=== PATIENT | female | born 1975 | race Caucasian/White ===

== ENCOUNTER 2024-02-07 20:32 | Emergency (ER) | payer OTHER ==
[2024-02-07] MEDS ORDERED: FAMOTIDINE 20 MG/50 ML IVPB 20 MG/50 ML MG IVPB ONE (22:20)
[2024-02-07] MEDS ORDERED: ONDANSETRON 4 MG/2 ML VIAL ONE (22:20)
[2024-02-07 22:24] LABS: BASO % 0.3 % (0-2.0); EOS % 1.1 % (0-4.5); HEMATOCRIT 43.9 % (32.4-45.2); HEMOGLOBIN 15.1 GM/dL (10.7-15.3); LYMPH % 25.5 % (8-40); MCHC 34.4 g/dl (32.0-36.0); MEAN CELL VOLUME 90.3 fl (80-96); MONO % 5.2 % (3.8-10.2); NEUT % 67.9 % (42.8-82.8); PLATELET COUNT 243 10^3/uL (134-434); RBC 4.86 M/mm3 (3.60-5.2); RDW 13.1 % (11.6-15.6); WHITE BLOOD COUNT 8.2 K/mm3 (4.0-10.0)
[2024-02-07] MEDS: FAMOTIDINE 20 MG/50 ML IVPB 20 MG/50 ML MG IVPB ONE (22:28)
[2024-02-07] MEDS: ONDANSETRON 4 MG/2 ML VIAL IVPUSH ONE (22:28)
[2024-02-07] MEDS: SODIUM CHLORIDE 1,000 ML IV STA (22:28)
[2024-02-07 22:31] LABS: INR 0.9 (0.83-1.09); PROTHROMBIN TIME (PATIENT) 10.4 SEC (9.7-13.0)
[2024-02-07 22:34] LABS: ACTIVATED PTT 31.6 SECONDS (25.2-36.5)
[2024-02-07 22:55] LABS: CHLORIDE 98 mmol/L (98-107); POTASSIUM 4.1 mmol/L (3.5-5.1); SODIUM 134 mmol/L (136-145)
[2024-02-07 22:57] LABS: CALCIUM 9.2 mg/dL (8.5-10.1)
[2024-02-07 22:58] LABS: ALBUMIN 3.8 g/dl (3.4-5.0); ANION GAP 10 mmol/L (4-13); BLOOD UREA NITROGEN 10.4 mg/dL (7-18); CO2 26 mmol/L (21-32); MAGNESIUM 2.2 mg/dL (1.8-2.4)
[2024-02-07 23:01] LABS: SGOT/AST 58 U/L (15-37); SGPT/ALT 116 U/L (13-61)
[2024-02-07 23:02] LABS: BILIRUBIN,TOTAL 0.5 mg/dL (0.2-1); TOT PROT 8.3 g/dl (6.4-8.2)
[2024-02-07 23:03] LABS: ALK PHOS 156 U/L (45-117)
[2024-02-07 23:15] LABS: GLUCOSE,RANDOM 451 mg/dL (74-106)
[2024-02-07 23:37] LABS: VENOUS BASE EXCESS -1.4 mmol/L (-2-2); VENOUS O2 SATURATION 95.5 % (70-80); VENOUS PCO2 36.9 mmHg (38-52); VENOUS PH 7.409 (7.310-7.410)
[2024-02-08 02:19] VITALS: BP 122/66; PULSE 79; RESP 13; TEMP 98.7
[2024-02-08] MEDS: SODIUM CHLORIDE 1,000 ML IV STA (02:52)
== END 2024-02-08 03:21 | disposition home or self-care (01) ==
LOC: JER 20:32
PROC: 3E033GC Introduction of Other Therapeutic Substance into Peripheral Vein, Percutaneous Approach (ICD-10-PCS; principal; 2024-02-07)
PROC: 3E033GC Introduction of Other Therapeutic Substance into Peripheral Vein, Percutaneous Approach (ICD-10-PCS; 2024-02-07)
PROC: 3E0337Z Introduction of Electrolytic and Water Balance Substance into Peripheral Vein, Percutaneous Approach (ICD-10-PCS; 2024-02-08)
DX: E11.65 Type 2 diabetes mellitus with hyperglycemia (principal); R10.11 Right upper quadrant pain; R10.13 Epigastric pain; R11.2 Nausea with vomiting, unspecified; R19.7 Diarrhea, unspecified
CPT/HCPCS: 36415; 80053; 82010; 82272; 82803; 82962; 83605; 83690; 83735; 84484; 85025; 85610; 85730; 86850; 86900; 86901; 93005; 93010; 99284-25